=== PATIENT | female | born 1950 | race Hispanic/Latino ===

== ENCOUNTER 2016-11-10 07:20 | Emergency (ER) | payer MEDICARE, MEDICAID ==
[~2016-11-10] VITALS: Ht 165.1 cm; Wt 96.4 kg
[~2016-11-10 07:20] MED LIST: ACET1TAB12 PO; CHOL200047 PO; GABA-502 PO; HYDR25TA4 PO; LOVA20TA PO; METH4TAB PO; METO100T3 PO; OMEP20CA11 PO; POLY17PO2 PO; TRET60CR TP
--- NOTE | 2016-11-10 07:21 | ED.REPORT ---
HPI-General Illness Date of Service Nov 10, 2016 ED Provider: Jarvis Cuellar Patient is a 65 year old female with a hx of DM, HTN, and GERD who presents to the ED complaining of R flank pain onset 3 days ago that now radiates to her pelvis. Associated symptoms include chills, dysuria, and hematuria. She denies fever, vaginal bleeding, diarrhea, constipation, nausea, vomiting, or any other symptoms. Nursing Notes Stated Complaint: SEVERE PAIN IN VAGINA/BLEEDING Nursing Notes Reviewed: Yes Allergies: Coded Allergies: No Known Allergies (Verified Allergy, Unknown, 02/02/15) Scheduled Cephalexin (Keflex) 500 Mg Capsule 500 MG PO QID Gabapentin (Gabapentin) 300 Mg Capsule 300 MG PO BID Hydrochlorothiazide (Hydrochlorothiazide) 25 Mg Tablet 25 MG PO DAILY Lisinopril (Lisinopril) 20 Mg Tablet 20 MG PO DAILY Lovastatin (Lovastatin) 20 Mg Tablet 20 MG PO HS Methylprednisolone (Medrol) 4 Mg Tablet 4 MG PO DAILY Metoprolol Tartrate (Metoprolol Tartrate) 100 Mg Tablet 100 MG PO BID Omeprazole (Omeprazole) 20 Mg Capsule.dr 20 MG PO DAILY Tamsulosin (Flomax) 0.4 Mg Capsule 0.4 MG PO HS Scheduled PRN Naproxen (Naproxen) 500 Mg Tab 500 MG PO BID PRN PRN For Pain Miscellaneous Medications Cholecalciferol (Vitamin D3) (Vitamin D3) 2,000 Unit Capsule 1,000 UNIT PO Polyethylene Glycol 3350 (Polyethylene Glycol 3350) 17 Gm Powd.pack 17 GM PO Tretinoin/Emollient Base ([place] 0.02% Cream) 60 Gm Cream..g. 60 GM TP General Time Seen by MD: 07:34 Chief Complaint Other (Flank pain ) Hx Obtained From: Patient Arrived By: Walk-in Sudden in Onset?: Yes Onset Occurred: 3 days ago Symptom Duration: Since onset Recent Healthcare: Recent doctor visit Past Medical History Past Medical History HTN GERD Anxiety Arthritis DM type 2 Past Surgical History Reports: Appendectomy, Smoking History Never Smoker Social History Other Social History: Good social support Ambulatory Status Independent Review of Systems Full Review of Systems Constitutional: Reports: Chills, Denies: Fever GI: Denies: Constipation, Diarrhea, Nausea, Vomiting Female: Reports: Dysuria, Flank pain, Hematuria, Pelvic pain, Denies: Vaginal bleeding - abnl Complete sys rev & neg: except as marked. Physical Exam Vital Signs Vital Signs Date Time Temp Pulse Resp B/P Pulse Ox O2 Delivery O2 Flow Rate FiO2 11/10/16 10:05 36.2 60 16 148/78 95 Room Air 11/10/16 09:36 60 16 148/78 95 Room Air 11/10/16 07:27 36.2 84 15 215/118 97 Room Air Initial VS: Reviewed, Vital signs abnormal Head / Eyes: Atraumatic, Normocephalic Neck: Full range of motion Respiratory: No respiratory distress Skin: Warm, Dry Neurologic: Alert, Oriented, Nonfocal Psychiatric: Mood/affect normal, Behavior normal, Normal thought content General/Constitutional: Awake, Alert, No acute distress Appearance / Presentation: Positive: Obese Abdomen: Atraumatic, Soft Tenderness/Guarding/Rebound: Positive: Tender suprapubic Flank / Spine / Paraspinal: Positive: Flank tender R Interpretation & Diagnostics CT KUB: IMPRESSION: 1. 1-2 mm stone in the distal right ureter without associated hydronephrosis. 2. Hepatic steatosis. 3. Atherosclerosis including the coronary vasculature. Dictated by: Torrie Llamas MD, PhD on 11/10/2016 at 8:45 Approved by: Torrie Llamas MD, PhD on 11/10/2016 at 8:50 Lab Results Interpretation Result Diagram: 11/10/16 0750 11/10/16 0750 Test 11/10/16 07:50 11/10/16 07:58 11/10/16 08:06 White Blood Count 11.0th/mm3 (3.8-10.1) Red Blood Count 4.89mil/mm3 (3.90-5.20) Hemoglobin 14.3g/dL (12.0-15.6) Hematocrit 42.6% (35.0-46.0) Mean Corpuscular Volume 87.1fL (81-100) Mean Corpuscular Hemoglobin 29.2pg (27.0-35.0) Mean Corpuscular Hemoglobin Concent 33.6% (32.0-37.0) Red Cell Distribution Width 12.7% (12.3-15.4) Platelet Count 181bil/L (150-400) Neutrophils (%) (Auto) 74.7% (40-74) Lymphocytes (%) (Auto) 17.9% (14-46) Monocytes (%) (Auto) 4.3% (4-12) Eosinophils (%) (Auto) 2.4% (0-5) Basophils (%) (Auto) 0.5% (0-3) Sodium Level 137mEq/L (134-144) Potassium Level 4.3mEq/L (3.5-5.2) Chloride Level 98mEq/L (97-108) Carbon Dioxide Level 23mmol/L (18-29) Blood Urea Nitrogen 16mg/dL (8-27) Creatinine 0.67mg/dL (0.57-1.00) Estimat Glomerular Filtration Rate 127mL/min (>59) Glucose Level 124mg/dL (60-99) Calcium Level 9.7mg/dL (8.5-10.1) Magnesium Level 2.0mg/dL (1.6-2.6) Total Bilirubin 0.5mg/dL (0.0-1.2) Aspartate Amino Transf (AST/SGOT) 23U/L (0-50) Alanine Aminotransferase (ALT/SGPT) 23U/L (0-32) Alkaline Phosphatase 100U/L (25-165) Total Protein 8.4g/dL (6.4-8.4) Albumin 4.7g/dL (3.4-5.0) Lipase 25U/L (13-60) Hold Heck Top Tube Received (Received) Urine Color Bloody (YELLOW) Urine Appearance Slightly cloudy Urine pH 6.0 (5.0-8.0) Urine Specific [place] 1.015 (1.003-1.035) Urine Protein 100mg/dL (NEG,TRACE) Urine Glucose (UA) Negativemg/dL (NEGATIVE) Urine Ketones Negativemg/dL (NEGATIVE) Urine Occult Blood Large (NEGATIVE) Urine Nitrite Negative (NEGATIVE) Urine Bilirubin Negative (NEGATIVE) Urine Urobilinogen Normalmg/dL (NORMAL) Urine Leukocyte Esterase Large (NEGATIVE) Urine RBC >50/hpf (0-2) Urine WBC 11-50/hpf (0-5) Urine Epithelial Cells Occasional/hpf (NONE-MOD) Urine Crystals None seen (NONE SEEN) Urine Bacteria None/hpf (NONE-FEW) Urine Hyaline Casts None/lpf (NONE) Urine Granular Casts None seen (NONE SEEN) Urine Waxy Casts None seen (NONE SEEN) Urine Red Blood Cell Casts None seen (NONE SEEN) Urine White Blood Cell Casts None seen (NONE SEEN) Urine Mucus None seen (None Seen) Urine Trichomonas None seen (NONE SEEN) Urine Yeast None (NONE SEEN) Urinalysis Comment None Urine Culture Reflexed Indicated Re-Eval/Medical Decision Med Decision/Clinical Course Has a kidney stone with evidence of UTI. There is no hydronephrosis, there are no vital sign instability or suggestions of sepsis at this time. Discussed with urology who recommends outpatient treatment. Return and follow-up precautions are given. Time of Eval: 09:56 Re-Evaluation/Progress Note: Rechecked patient. Discussed imaging and lab results. Discussed plan for discharge with urology F/U. Patient understands and agrees with plan. All questions addressed at this time. Consultation : Referral / Consult Name: Felipa Sauceda MD Consulted With: Urology Call Returned at: 09:10 Radiology Physician: Will see in office Note: Discussed case including laboratory findings vital signs in CAT scan. Recommends tamsulosin, pain control, antibiotics, and DC, send culture to Dr. roman [phone] microbiology to send results to Dr. Rubio office Counseled Regarding: Diagnosis, Lab results, Need for follow-up, When/why to return to ED Discharge & Departure Primary Impression: UTI (urinary tract infection) Urinary tract infection type: site unspecified Hematuria presence: with hematuria Qualified Code: N39.0 - Urinary tract infection, site not specified Additional Impression: Kidney stone Disposition: Home Discharge Condition All VS Reviewed: Yes Condition: Stable Patient Instructions: Kidney Stones (ED) Additional Instructions: Take tamsulosin, naproxen, and keflex for your symptoms. Follow-up with Dr. Sauceda in the next few days. Return to the ER if you develop severe uncontrolled pain, high fever, lethargy, persistent vomiting, or any other concerns [place] tamsulosin, naproxen, y keflex para los sintomas. Acude seguimiento con el Dr. Sauceda in los pocos mendez siguientes. Regres a la clark de emergencias si empieza con dolor que no pueda controlar, [place] fiebre(calentura), letargo, vomito que persiste, o cualquieres otras preocupaciones. mc Referrals: Fabiana Doran MD (PCP) Felipa Sauceda MD Attestation Portions of this note were transcribed by Carlitos Hurley. I, Dr. Cuellar personally performed the history, physical exam and medical decision-making; I reviewed and confirmed the accuracy of the information in the transcribed note. Signed by: Sindhu Blackmon, 11/10/16 copies to: Felipa Sauceda MD, Timothy S DO Nov 10, 2016 07:21 Tereza Wright Nov 10, 2016 07:32 CARLITOS HURLEY Nov 10, 2016 07:47
[2016-11-10 07:27] VITALS: BP 215/118; PULSE 84; RESP 15; O2SAT 97
[2016-11-10] MEDS ORDERED: LISI-567 PO (07:36)
[2016-11-10] MEDS ORDERED: 0.9% Sodium Chloride 1,000 ML IV ONE (07:44)
[2016-11-10] MEDS ORDERED: HYDROmorphone 0.5 mg/0.5 mL iSecure Syringe IVPUSH PRN (07:45)
[2016-11-10] MEDS ORDERED: Ondansetron 2 mg/mL 2 mL Inj IVPUSH PRN (07:45)
[2016-11-10] MEDS ORDERED: Ketorolac 15 mg/mL Inj IVPUSH ONE (07:45)
[2016-11-10 08:28] LABS: EOSINOPHILS % (AUTO) 2.4 % (0-5); MONOCYTES % (AUTO) 4.3 % (4-12); Mean Corpuscular Hemoglobin 29.2 pg (27.0-35.0); Mean Corpuscular Volume 87.1 fL (81-100); NEUTROPHILS % (AUTO) 74.7 % (40-74); Platelet Count 181 bil/L (150-400)
[2016-11-10 08:29] LABS: BASOPHILS % (AUTO) 0.5 % (0-3)
--- NOTE | 2016-11-10 08:51 | DRSVH ---
PROCEDURE: CT KUB ([id number]) INDICATIONS: right flank pain, hematuria, DM TECHNIQUE: Noncontrast 5 mm thick sections acquired from the diaphragms to the symphysis. 5 mm thick coronal an d sagittal reformats were then performed. For radiation dose reduction, the following was used: aut omated exposure control, adjustment of mA and/or kV according to patient size. COMPARISON: None. FINDINGS: Image quality: Excellent. Lung bases: Lung bases are clear. Heart size is normal. Atherosclerotic calcifications noted in the visualized coronary vascular. Urinary system: Both kidneys are normal in size. There is a 1-2 mm stone in the distal right ureter. No hydronephrosis or perinephric fat stranding. Both ureters appear non-dilated throughout their ex pected courses. Bladder wall thickness is normal; no calcified bladder stones. Other solid organs: Liver and spleen are normal in size. Diffuse fatty infiltration of the liver. Ga llbladder is within normal limits. Pancreas is normal in contours. No adrenal nodules. Peritoneum and bowel: Unenhanced bowel loops demonstrate normal wall thickness and caliber. Scattere d colonic diverticuli without evidence of diverticulosis. No free fluid or air. Nodes and vessels: No retroperitoneal or mesenteric adenopathy by size criteria. Aorta and inferior vena cava are normal in caliber. Scattered atherosclerotic calcifications involving the abdominal an d pelvic vasculature. Abdominal wall: No ventral hernias. Pelvis: No free pelvic fluid. No inguinal hernias or adenopathy. Bones: No suspicious bony lesions. No vertebral body compression fractures. Spine degenerative disc disease and facet arthropathy. IMPRESSION: 1. 1-2 mm stone in the distal right ureter without associated hydronephrosis. 2. Hepatic steatosis. 3. Atherosclerosis including the coronary vasculature. Dictated by: Torrie Llamas MD, PhD on 11/10/2016 at 8:45 Approved by: Torrie Llamas MD, PhD on 11/10/2016 at 8:50
[2016-11-10 09:05] LABS: APPEARANCE,URINE SLIGHTLY CLOUDY (CLEAR,HAZY); COLOR,URINE BLOODY (YELLOW); OCCULT BLOOD,URINE LARGE (NEGATIVE)
[2016-11-10 09:06] LABS: UROBILINOGEN,URINE NORMAL (NORMAL)
[2016-11-10] MEDS ORDERED: cefTRIAXone Inj 2,000 MG in Dextrose 5% Minibag Plus 50 ML IV ONE (09:20)
[2016-11-10 09:36] VITALS: BP 148/78; PULSE 60; RESP 16; O2SAT 95
[2016-11-10] MEDS ORDERED: CEPH-512 PO (09:50)
[2016-11-10] MEDS ORDERED: TAMS0.4C98 PO (09:50)
[2016-11-10] MEDS ORDERED: NPR500T PO (09:50)
[2016-11-10 10:05] VITALS: BP 148/78; PULSE 60; RESP 16; O2SAT 95
== END 2016-11-10 10:06 | disposition home or self-care (01) ==
LOC: SED 07:20
DX: N39.0 Urinary tract infection, site not specified (principal); N20.0 Calculus of kidney; E11.9 Type 2 diabetes mellitus without complications; I10 Essential (primary) hypertension; K21.9 Gastro-esophageal reflux disease without esophagitis; Z87.39 Personal history of other diseases of the musculoskeletal system and connective tissue; Z90.89 Acquired absence of other organs
CPT/HCPCS: 36415; 74176; 80053; 81000; 83690; 83735; 85025; 87086; 87088; 96361; 96365; 96375; 99285; J0696; J1885; J2405; J7030